=== PATIENT | male | born 1995 | race Asian ===

== ENCOUNTER 2025-04-17 08:46 | Outpatient (REF) | payer OTHER, SELFPAY ==
[2025-04-17 13:42] LABS: Appearance Urine Clear; Glucose Urine UA Negative (Negative); PH 7.0 (5.0-9.0); Specific Gravity - Urine 1.025 (1.005-1.025)
[2025-04-17 14:26] LABS: Alanine Aminotransferase 71 U/L (0-40); Albumin Level 4.6 g/dL (3.5-5.0); Alkaline Phosphatase 82 U/L (39-117); Anion Gap 9 (12-20); Aspartate Amino Transferase 37 U/L (5-37); Blood Urea Nitrogen 15 mg/dL (9-16); Calcium 9.0 mg/dL (8.4-10.2); Carbon Dioxide 26 mmol/L (22-29); Chloride 108 mmol/L (96-108); Cholesterol 187 mg/dL (<200); Estimated Glomerular Filt Rate > 60; HDL Cholesterol 54 mg/dL (>40); Magnesium 2.1 mg/dL (1.6-2.6); Potassium 4.2 mmol/L (3.3-5.1); Sodium 139 mmol/L (135-145); Total Protein 7.5 g/dL (6.5-8.0); Triglycerides 60 mg/dL (<150)
[2025-04-17 14:48] LABS: Hematocrit 46.4 % (42.0-52.0); Hemoglobin 15.3 g/dl (14.0-18.0); Imm Gran Abs Auto 0.02 X10*3/uL (0.00-0.03); Imm Gran Pct Auto 0.4 % (0.0-0.4); Lymphocytes Absolute Auto 2.2 X10*3/uL (1.2-4.9); MANUAL DIFF FLAG SCAN; Mean Corpuscular HGB Conc 33.0 g/dl (31.0-36.0); Mean Corpuscular Hemoglobin 27.0 pg (27.0-33.0); Mean Corpuscular Volume 82.0 fL (80.0-98.0); NRBC Abs Auto 0.000 X10*3/uL (0.0-0.012); NRBC Pct Auto 0.0 /100WBC (0.0-0.2); PLT CLUMP 1; Red Blood Count 5.66 X10*6/uL (4.60-5.80); SCAN SMEAR FLAG 1
[2025-04-17 14:54] LABS: Platelet Count 199 X10*3/uL (160-400); White Blood Count 5.3 X10*3/uL (4.8-10.8)
[2025-04-17 15:16] LABS: CT PCR Urine NOT DETECTED (Not Detect.); NG PCR Urine NOT DETECTED (Not Detect.)
[2025-04-17 18:27] LABS: Folate 6.1 ng/mL (> or = 4.0); Vitamin B12 380 pg/mL (200-900)
[2025-04-18 04:00] LABS: Syphilis Screen Nonreactive (Nonreactive)
[2025-04-18 04:12] LABS: HBS Num1 1.91 mIU/mL (0-7.99); HBsAGNum1 0.54 S/CO (0.00-0.99); HIV Num 1 0.08 S/CO (0.00-0.99); Hepatitis B Surface Antigen Negative (Negative); ~HepC Num1 0.24 S/CO (0.00-0.79); ~Hepatitis B Surface Antibody NONREACTIVE (Nonreactive); ~Hepatitis C Antibody Nonreactive (Nonreactive)
[2025-04-21 15:04] LABS: VITAMIN D (1,25 OH) D3 34 pg/mL; Vit D (1,25-Dihydroxy) Total 34 pg/mL (18-72); Vitamin D (1,25 OH) D2 <8 pg/mL
[2025-04-23 09:54] LABS: Testosterone, Free 77.8 pg/mL (35.0-155.0)
== END 2025-04-17 08:47 | disposition home or self-care (01) ==
LOC: HO.HKASLDS 08:46
PROVIDERS: PCP Student in an Organized Health Care Education/Training Program; Visit Provider Student in an Organized Health Care Education/Training Program
DX: Z13.9 Encounter for screening, unspecified (principal); Z23 Encounter for immunization; E66.812 Obesity, class 2; G47.9 Sleep disorder, unspecified; R06.83 Snoring; Z68.37 Body mass index [BMI] 37.0-37.9, adult
CPT/HCPCS: 80053; 80061; 81003; 82607; 82652; 82746; 83036; 83735; 84402; 84403; 84443; 85025; 86706; 86780; 86803; 87340; 87389; 87491; 87591; 90471; 90656; 96127

== ENCOUNTER 2025-04-17 08:46 | Outpatient (AMB) | payer OTHER, SELFPAY ==
--- NOTE | 2025-04-17 08:57 | A.OFFPC_ITS ---
Vital Signs 04/17/25 09:01 Height 5 ft 10.91 in Weight 269 lb 4 oz BMI 37.6 BP 122/82 Blood Pressure Location Rt brachial Position Sitting Pulse 86 Pulse Source Pulse Oximeter Temp 98.1 F Temp Source Oral Pulse Oximetry (%) 97 Oxygen Delivery Method Room Air Intake Visit Reasons: Meds review GIFT SHOP CLERK Accompanied by: Self / Same As Patient Allergies No Known Allergies Allergy (Verified 04/17/25 08:57) Tobacco use date assessed: 04/17/25 Dental Screening Dental Screen Date: 04/17/25 Did you have a dental visit in the last 12 months?: Yes Was dental information given to patient?: Patient has dentist HPI HPI Comments History of Present Illness Details History of Present Illness The patient is a 29 year old male presenting for his first medical appointment in over five years for a general health check-up and to discuss a suspected right inguinal hernia. Wellness Visit: The patient is establishing care after not having seen a doctor for over five years. He has recently started exercising again and improving his diet, resulting in a weight loss from 285 lbs to 269 lbs. Suspected Right Inguinal Hernia: The patient reports a lump or tube-like structure on his right side that comes and goes. He notes it is more prominent with physical activity, particularly when he was running over the summer, and has been less noticeable during the colder months when he was less active. Inadequate Sleep and Snoring: The patient reports not getting enough sleep, though he sleeps through the night well. He was previously averaging 3 to 4 hours of sleep per night and is now up to 6 hours, attributing the lack of sleep to overwork and stress. He endorses snoring and occasionally feels tired upon waking, but denies waking up gasping for air. He has never had a sleep study. Family History of Cancer: The patient has a significant family history of cancer. His father, who was a smoker, of lung cancer when the patient was 8 years old. His mother had thyroid cancer and from ovarian cancer. His 30- or 31-year-old brother, a non-smoker, also had lung cancer, underwent a partial lung resection, and has been in remission for five years. The patient states his brother underwent genetic marker testing, which revealed a shared genetic marker, but the patient is unaware of the specific marker and has not been tested himself. Surgical History: - Open reduction and internal fixation o f left arm fracture with two pins at age 16, pins subsequently removed Social History: - Employment: Works in corporate banking and manages other businesses. - Recent Life Events: Moved back to [facility] to care for his mother before s he . - Substance Use: Smokes marijuana sparin gly, about three times a year, and uses edibles occasionally from a dispensary. - Exercise: Has recently resumed exercis ing after a period of inactivity. - Nutrition: Reports his diet needs impr ovement. 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 Family History: - Father: History of lung cancer (smoker ), . - Mother: History of hypertension, thyro id cancer, and ovarian cancer, . - Brother: History of lung cancer (non-s moker), currently in remission. - Brother: Underwent genetic marker test ing due to parental cancer history and tested positive for an unspecified marker. Past Medical History - Fracture of left arm with growth plate involvement at age 16. - Denies personal history of high blood pressure, diabetes, or epilepsy. - No history of hospitalizations. Health Maintenance - Establishing care after not seeing a p hysician for over five years. - Weight management: Patient has initiat ed lifestyle changes including diet and exercise, with a recent weight loss from 285 pounds to 269 pounds. - Prostate cancer screening: Patient was advised that screening is not necessary at his age of 29, especially as he is asymptomatic. [facility] Medical History (Updated 04/17/25 @ 09:21 by Richard Padilla MD) Snoring Sleep disturbance Class 2 obesity Family History Mother Ovarian cancer Thyroid cancer HTN (hypertension) Diabetes Father Lung cancer HTN (hypertension) Brother Lung cancer Social History Housing: Apartment Patient Tobacco Use Status: Never used Tobacco e-Cigarette/Vaping Use: Never Used service: No Current occupational status: employed Cognitive needs: No Hearing needs: No Vision needs: No Questionnaire PHQ-9 Over the last 2 weeks, how often have you been bothered by any of the following problems? 1. Little interest or pleasure in doing things: several days 2. Feeling down, depressed, or hopeless: several days 3. Trouble falling or staying asleep, or sleeping too much: not at all 4. Feeling tired or having little energy: several days 5. Poor appetite or overeating: several days 6. Feeling bad about yourself - or that you are a failure or have let yourself or your family down: several days 7. Trouble concentrating on things, such as reading the newspaper or watching television: not at all 8. Moving or speaking so slowly that other people could have noticed. Or the opposite - being so fidgety or restless that you have been moving around a lot more than usual: not at all 9. Thoughts that you would be better off or of hurting yourself in some way: not at all Total score: 5 Depression Screening Interpretation: Negative Depression Screening Done: Yes Source: Developed by Drs. Ramiro Castro, Smita Orozco, Bao Pedroza and colleagues, with an educational erendira from [employer] Thrive Questionnaire Date Thrive assessed: 04/17/25 I am a: Patient What is your living situation today?: I have a steady place to live Within the past 12 months, did the food you bought not last and you didn't have the money to get more?: Never true Within the past 12 months, did you worry whether your food would run out before you got money to buy more?: Never true Do you have trouble paying for medicines?: No Do you have trouble getting transportation to medical appointments?: No Do you have trouble paying your heating and electricity bill?: No Do you have trouble taking care of your child, family member or friend?: No Do you have trouble with day-to-day activities such as bathing, preparing meals, shopping, managing finances, etc.?: No Are you currently unemployed and looking for a job?: No Are you interested in more education?: No Please select the resources that you would like help with: None Currently or been in a relationship where the following occur: No concerns reported THRIVE Score: 0 AUDIT C Alcohol Use Questionnaire (AUDIT-C) 1. How often do you have a drink containing alcohol?: Never Total Score: 0 SHERYL-7 AMB Questionnaire SHERYL-7 Date SHERYL - 7 assessed: 04/17/25 Feeling nervous, anxious, or on edge: 1 = Several days Not being able to stop or control worryin = Not at all Worrying too much about different things: 1 = Several days Trouble relaxin = More than half the days Being so restless that it is hard to sit still: 0 = Not at all Becoming easily annoyed or irritable: 1 = Several days Feeling afraid as if something awful might happen: 0 = Not at all Total SHERYL-7 score (0-4 normal; 5-9 mild; 10-14 moderate; 15-21 severe): 5 Source: Developed by Drs. Ramiro Castro, Smita Orozco, Bao Pedroza and colleagues, with an educational erendira from [employer] Review of Systems Narrative Review of Systems - General: Reports occasional fatigue on waking. - Abdominal: Reports a lump on the right side that comes and goes, more noticeable with physical activity. - Genitourinary: Reports normal urination. - Gastrointestinal: Reports bowel movements a few times per day, which is his normal. - Respiratory: Denies waking up gasping for air. - Neurological: Reports sleep is not amazing but sleeps through the night; endorses snoring. 10-point ROS reviewed and negative except as noted in HPI Physical exam (Primary Care) Vital Signs: Last Vital Signs Temp 98.1 F 04/17/25 09:01 Pulse 86 04/17/25 09:01 BP 122/82 04/17/25 09:01 Pulse Ox 97 04/17/25 09:01 Oxygen Delivery Method Room Air 04/17/25 09:01 BMI result Body Mass Index 37.6 Tobacco/Smoking Status: Tobacco use Status Tobacco use date assessed 04/17/25 04/17/25 08:58 Patient Tobacco Use Status Never used Tobacco 04/17/25 08:58 e-Cigarette/Vaping Use Never Used 04/17/25 08:58 PHQ-9: PHQ-9 Score PHQ-9: Total score 5 04/17/25 09:02 Depression Screening Interpretation: Negative Thrive Assessment: Date of Thrive Assessment Date Thrive assessed 04/17/25 12 08:58 Currently or been in a relationship where the following occur: No concerns reported Narrative Physical Exam General: Well-appearing, in no acute distress. Vital signs: Within normal limits. HEENT: Normocephalic, atraumatic. PERRLA, EOMI. Conjunctiva clear, sclera anicteric. Oropharynx clear, mucous membranes moist. TMs intact bilaterally. Neck: Supple, no lymphadenopathy, no thyromegaly, no JVD or carotid bruits. Cardiovascular: RRR, normal S1/S2, no murmurs, rubs, or gallops. Peripheral pulses 2+ and symmetric. No edema. Respiratory: Lungs clear to auscultation bilaterally, no wheezes, rales, or rhonchi. Normal effort. Abdomen: Soft, non-tender, non-distended. Normoactive bowel sounds. No hepatosplenomegaly, no masses. did not palpate mass MSK: Full range of motion, no joint swelling or deformity. Normal gait. Skin: Warm, dry, intact. No rashes, lesions, or pallor. Neuro: Alert and oriented x3. Cranial nerves II-XII intact. Strength 5/5 throughout. Sensation intact. Reflexes 2+ symmetric. Normal coordination and gait. Psych: Appropriate mood and affect. Normal judgment and insight. Office Procedures Flu Questionnaire Does the patient have a severe egg allergy?: No Does the patient have severe life threatening allergies?: No Does the patient have a fever or illness today?: No Has the patient ever had Guillain-Buffalo Syndrome?: No Has the patient ever had any past reaction to a flu shot?: No Immunizations Fluarix [id number] (PF) 45 mcg (15 mcg x 3)/0.5 mL IM syringe Performing Provider: Richard Padilla MD Performing Location: [facility] Administered by: Tonie Chamorro CMA on 04/17/25 09:13 Dose Route Admin Location Dispensed Lot Number Expiration Date NDC Paperboard Machine Operator 0.5 mL IM Left Deltoid 0.5 mL [id number] 11/07/25 [id number] Number 1 Products and Services VIS Given Date VIS Provided VIS Publication Date 04/17/25 Single Vaccine 24 Eligibility Eligibility Date Funding Source Not [facility] Eligible 04/17/25 Private Coding Level of Care Code New Pt Level 4 (67517) Diagnoses Class 2 obesity E66.812 Sleep disturbance G47.9 Snoring R06.83 Assessment & Plan Assessment & Plan (1) Class 2 obesity: Code(s): E66.812 - Obesity, class 2 Category: Medical (2) Sleep disturbance: Code(s): G47.9 - Sleep disorder, unspecified Category: Medical (3) Snoring: Code(s): R06.83 - Snoring Category: Medical Plan Consent Patient was informed and verbally consented to the use of an ambient scribe for clinic note documentation during this visit. Plan 1. Wellness Visit And Health Maintenance - Comprehensive baseline labs will be ordered including a complete blood count (CBC), comprehensive metabolic panel (CMP), hemoglobin A1c, hepatitis B and C panels, HIV test, lipid panel, magnesium, syphilis test, thyroid panel, urinalysis, vitamin B12, folate, vitamin D, and testosterone. - Patient will follow up in two weeks to review lab results and discuss further management, including weight loss strategies. 2. Inadequate Sleep And Snoring - Will order an at-home sleep study to evaluate for sleep apnea, which could be related to his blood pressure and weight. - The patient was informed that the results of the sleep study will guide further treatment decisions. 3. Prostate Screening Counseling - The patient was counseled that prostate screening is not indicated at his age of 29, as he is too young and asymptomatic. Discussion Notes I introduced myself to the patient, a 29-year-old male presenting for his first doctor's appointment in over five years. We discussed his concerns, including a suspected right inguinal hernia, recent weight loss efforts, and a question about prostate screening. I explained that as this is our first visit, the initial step is to gather baseline information with a comprehensive set of lab tests. I listed the labs ordered, which include a CBC, CMP, HbA1c, hepatitis panel, HIV, lipid panel, and various vitamin and hormone levels. I advised him that prostate screening is not necessary at his age, particularly since he is asymptomatic. Due to his history of snoring, inadequate sleep, and occasional tiredness, I recommended an at-home sleep study to rule out sleep apnea, explaining that untreated sleep issues can hinder weight loss. We discussed his significant family history of cancer, and I reassured him that based on the current evaluation, there are no immediate red flags. I instructed him to schedule a fo llow-up appointment in two weeks to review all results and formulate a comprehensive plan for weight management and any other identified issues. Patient Instructions - Please proceed to the lab in our office to have your blood drawn for the ordered tests. - Schedule a follow-up appointment in about two weeks to discuss your lab results and next steps. - You will be contacted to set up an at-home sleep study. Please order picker the kit, use it as instructed, and return it so we can get the results. - You can set up a patient portal account to view your lab results once they are available. - Prostate cancer screening is not needed at this time. Medical Decision Making The patient is a 29-year-old male establishing care after a five-year lapse. His primary goals are a general health evaluation, weight management, and assessment of a suspected right inguinal hernia. Given this is an initial visit, my priority is to obtain comprehensive baseline data. I ordered a full panel of labs including CBC, CMP, lipids, HbA1c, TSH, STI screening, and vitamin levels to get a complete picture of his metabolic and overall health status. The patient's concern about prostate screening was addressed; given his age of 29 and lack of urinary symptoms or a first-degree relative with early-onset prostate cancer, I explained that screening is not indicated and could lead to unnecessary procedures. The patient's report of poor sleep, snoring, and occasional fatigue, coupled with his weight, raises suspicion for obstructive sleep apnea. Untreated CANDIS can impede weight loss and affect cardiovascular health, so an at-home sleep study is a crucial next diagnostic step. The plan is to follow up in two weeks to review all diagnostic results. At that time, we will discuss the findings in detail, address his weight loss goals, and determine the need for any specialist referrals or further interventions based on the lab and sleep study outcomes. Total Time Statement 30 min Total time spent caring for the patient today includes pre-visit chart review, documentation, review of laboratory and diagnostic imaging results, medication reconciliation, medically necessary evaluation, counseling on diagnoses, care coordination, ordering appropriate tests and medications, review of tests performed by other providers, reporting test results to the patient, and communication with other healthcare providers. Orders: Orders Complete Blood Count Auto Diff Today Z13.9 - Encounter for screening, unspecified Syphilis Screen Today Z13.9 - Encounter for screening, unspecified Comprehensive Met. Panel Today Z13.9 - Encounter for screening, unspecified Hepatitis C Antibody Today Z13.9 - Encounter for screening, unspecified TSH reflex Free T4 Today Z13.9 - Encounter for screening, unspecified CT NG by PCR Urine Today Z13.9 - Encounter for screening, unspecified HIV Ab/Ag Today Z13.9 - Encounter for screening, unspecified UA CC w/rflx Micro + Cult Today Z13.9 - Encounter for screening, unspecified Vitamin B12 and Folate Today Z13.9 - Encounter for screening, unspecified Magnesium Today Z13.9 - Encounter for screening, unspecified Vitamin D 1,25 dihydroxy Today Z13.9 - Encounter for screening, unspecified Hepatitis B Surface Antibody Today Z13.9 - Encounter for screening, unspecified RT home sleep study Today G47.9 - Sleep disorder, unspecified, R06.83 - Snoring Influenza [id number] Immunization Today Z23 - Encounter for immunization Hepatitis B Surface Antigen Today Z13.9 - Encounter for screening, unspecified Lipid Panel Today Z13.9 - Encounter for screening, unspecified Hemoglobin A1c Today Z13.9 - Encounter for screening, unspecified Testosterone, Free/Total Today Z13.9 - Encounter for screening, unspecified
[2025-04-17 09:01] VITALS: BP 122/82; PULSE 86; TEMP 36.7; O2SAT 97; BMI 37.6
--- OUTSIDE RECORDS SUMMARY | 2025-04-17 11:20 | XMS_ITS | Encounter Summary ---
Author Organization [facility] Address [address] [place] [id number] Phone Care Team Providers Care Remelt Pan Tank Operator Name Role Phone Rani Warner Primary Care Provider [phone] Encounter Details Date Type Department Care Team (Late st Contact Info) Description 12/18/2010 Conversion Encounter [facility] - [address] [address] Social History Tobacco Use Types Packs/Day Years Used Date Smoking Tobacco: Never Assessed Sex and Gender Information Value Date Recorded Sex Assigned at Not on file Legal Sex Male 6:15 PM EDT Gender Identity Not on file Sexual Orientation Not on file documented as of this encounter Plan of Treatment Not on file documented as of this encounter Visit Diagnoses Not on filedocumented in this encounter Care Teams Remelt Pan Tank Operator Relationship Specialty Start Date End Date Rani Warner [address] [place] [id number] PCP - General 09/16/17 documented as of this encounter
--- OUTSIDE RECORDS SUMMARY | 2025-04-17 11:20 | XMS_ITS | Clinical Summary ---
Author Organization [facility] Address [address] [place] [address] Phone Care Team Providers Care Seamer Operator Name Role Phone Rani Warner Primary Care Provider [phone] Immunizations Immunization Administration Dates Next Due DTaP 5 06/15/2001, 9,1996, 997,1996 H1N1 06/07/2009 Hep A, ped/adol 07/28/2012,07/23/2010 Hep B, ped/adol 03/22/1997,1996,1996 Hib (PRP-T) 07/24/1998, 7,1996, 997 MMR 06/15/2001,07/24/1998 Meningococcal Conj (Menactra) MCV4P 09/29/2013,1 06/25/2007 OPV 06/15/2001, 9,1996, 997 PPD Test 01/02/2009 Tdap 01/04/2007 Social History Tobacco Use Types Packs/Day Years Used Date Smoking Tobacco: Never Comments:Never Smoker Sex and Gender Information Value Date Recorded Sex Assigned at Not on file Legal Sex Male 6:15 PM EDT Gender Identity Not on file Sexual Orientation Not on file Last Filed Vital Signs Vital Sign Reading Time Taken Comments Blood Pressure - - Pulse 98 09/29/2013 3:03 PM EDT Temperature 36.8 C (98.3 F) 06/18/2011 3:54 PM EST Respiratory Rate - - Oxygen Saturation 97% 09/29/2013 3:03 PM EDT Inhaled Oxygen Concentration - - Weight 93.6 kg (206 lb 5.6 oz) 09/29/2013 2:57 P M EDT Height 176.5 cm (5' 9.5 ) 09/29/2013 2:57 PM EDT Body Mass Index 30.04 09/29/2013 2:57 PM EDT Plan of Treatment Health Maintenance Due Date Last Done Comments Varicella Vaccines (1 of 2 - 13+ 2-dose series) 2009 DTaP,Tdap,and Td Vaccines (7 - Td or Tdap) 01/04/2017 01/04/2007, 06/15/2001, 07/24/1998, Additional history exists HPV Vaccines (1 - 3-dose SCDM series) 2023 Influenza Vaccines (#1) 2024 COVID-19 Vaccine ( season) 2025 Hepatitis B Vaccines Completed 03/22/1997, 1996, 1996 HIB Vaccines Completed 07/24/1998, 12/09, 1996, Additional history exists IPV Vaccines Completed 06/15/2001, 07/09, 1996, Additional history exists MMR Vaccines Completed 06/15/2001, 07/24/1998 Hepatitis A Vaccines Completed 07/28/2012, 07/24/19 11 Meningococcal Vaccine Completed 09/29/2013, 008 Men B Vaccine Aged Out No longer elig ible based on patient's age to complete this topic Pneumococcal Vaccine Aged Out No long er eligible based on patient's age to complete this topic Care Teams Seamer Operator Relationship Specialty Start Date End Date Rani Warner [address] [place] [address] PCP - General 09/16/17
== END 2025-04-17 09:25 | disposition home or self-care (01) ==
LOC: HO.HMCFMS 08:47
PROVIDERS: Visit Provider Student in an Organized Health Care Education/Training Program
DX: E66.812 Obesity, class 2 (principal); G47.9 Sleep disorder, unspecified; R06.83 Snoring; Z23 Encounter for immunization

== ENCOUNTER 2025-05-01 16:28 | Outpatient (AMB) | payer OTHER, SELFPAY ==
[2025-05-01 16:29] VITALS: BP 124/90; PULSE 98; TEMP 36.8; O2SAT 97
--- NOTE | 2025-05-01 16:29 | A.OFFPC_ITS ---
Vital Signs 05/01/25 16:29 Height 5 ft 10.91 in BP 124/90 H Blood Pressure Location Rt brachial Position Sitting Pulse 98 Pulse Source Pulse Oximeter Temp 98.2 F Temp Source Oral Pulse Oximetry (%) 97 Oxygen Delivery Method Room Air Intake Visit Reasons: 2 wk - lab review Accompanied by: Self / Same As Patient Allergies No Known Allergies Allergy (Verified 05/01/25 16:29) Tobacco use date assessed: 05/01/25 Dental Screening Dental Screen Date: 05/01/25 Did you have a dental visit in the last 12 months?: Yes HPI HPI Comments History of Present Illness Details Consent Verbal consent was obtained from the patient to discuss his weight after being asked for permission. Patient was informed and verbally consented to the use of an ambient scribe for clinic note documentation during this visit. History of Present Illness The patient is a 29 year old male presenting for review of his laboratory results. Prediabetes: The patient's recent lab results showed a hemoglobin A1c of 6.4% and a random glucose of 127 mg/dL, indicating prediabetes. He was not surprised by the result, attributing it to a recent poor lifestyle. He has a significant family history of diabetes. Obesity and Metabolic Syndrome: The patient has a BMI of 37.6, which falls into obesity class II. He acknowledges that his weight is a major health concern he has not managed well. His heaviest weight this year was 285-287 pounds. He started running this year and completed a seven-mile race, but stopped when the weather got colder. He notes that in the past, he was in much better physical shape at around 211 pounds with 14% body fat. The combination of his weight, prediabetes, and elevated lipids fits a pattern of metabolic syndrome. Hyperlipidemia and Elevated Liver Enzymes: Lab results showed an elevated LDL cholesterol of 121 mg/dL and an elevated ALT of 71 U/L. The patient reports that the labs were likely drawn in a fasting state as he usually skips breakfast. His triglycerides and HDL were noted to be good. Sleep Disturbance: The patient has been actively working on improving his sleep duration. He reports increasing his average sleep from 4.5-5 hours per night last year to 6.5-7 hours per night this year. He has a sleep study scheduled for June 12. Surgical History: - No prior surgical history was discusse d. Medications: - The patient was not taking any medicat ions at the time of the visit. Social History: - Exercise: The patient started running this year and completed a 7-mile race. - He has not run regularly since it got cold. - He reports his weight fluctuated betwe en 260 and 275 pounds when he was exercising heavily. - Nutrition: The patient acknowledges a recent poor lifestyle regarding his diet . - He typically skips breakfast, which ma y result in an intermittent fasting pattern. - Sleep: The patient has improved his sl eep from an average of 4.5-5 hours to 6.5-7 hours per night over the past year. Family History: - Positive for a history of diabetes in most of his family members. Diagnostic Results: - Complete Blood Count: White blood cell s, red blood cells, hemoglobin, hematocrit, and platelets were noted to be good. - Comprehensive Metabolic Panel: Sodium, potassium, chloride, and kidney function are good. - Random glucose was 127 mg/dL. - ALT was elevated at 71 U/L. - Calcium and magnesium levels are good. - Hemoglobin A1c: 6.4%. - Lipid Panel: LDL cholesterol is 121 mg /dL. - Triglycerides and HDL were noted to be good. - Other Labs: Vitamin B12 (380), folate, TSH, and total testosterone levels are good. - Infectious Disease Screening: Negative for Hepatitis B, Hepatitis C, and HIV. - Urinalysis: Normal. - Anthropometrics: BMI is 37.6. Review of Systems - General: Reports feeling unwell during exercise after poor dietary choices. - Musculoskeletal: Reports feeling strai n on his knees, ankles, and back when running due to his weight. - All other systems were reviewed and ar e negative as per the conversation. 10-point ROS reviewed and negative excep t as noted in HPI Past Medical History - No significant past medical history wa s discussed. Health Maintenance - Discussed BMI categories and the patie nt's classification as obesity class II with a BMI of 37.6. - Counseled on the role of BMI as an ind icator for future cardiovascular risk. - Recommended lifestyle modifications, i ncluding 30 minutes of moderate- intensity exercise daily. - Scheduled sleep study for June 12 to investigate for sleep apnea. - Reviewed comprehensive lab results, wh ich were negative for infectious diseases. [facility] Medical History Snoring Sleep disturbance Class 2 obesity Family History Mother Ovarian cancer Thyroid cancer HTN (hypertension) Diabetes Father Lung cancer HTN (hypertension) Brother Lung cancer Social History Housing: Apartment Patient Tobacco Use Status: Never used Tobacco e-Cigarette/Vaping Use: Never Used service: No Current occupational status: employed Cognitive needs: No Hearing needs: No Vision needs: No Questionnaire PHQ-9 Over the last 2 weeks, how often have you been bothered by any of the following problems? 1. Little interest or pleasure in doing things: several days 2. Feeling down, depressed, or hopeless: several days 3. Trouble falling or staying asleep, or sleeping too much: not at all 4. Feeling tired or having little energy: several days 5. Poor appetite or overeating: several days 6. Feeling bad about yourself - or that you are a failure or have let yourself or your family down: several days 7. Trouble concentrating on things, such as reading the newspaper or watching television: not at all 8. Moving or speaking so slowly that other people could have noticed. Or the opposite - being so fidgety or restless that you have been moving around a lot more than usual: not at all 9. Thoughts that you would be better off or of hurting yourself in some way: not at all Total score: 5 Depression Screening Interpretation: Negative Depression Screening Done: Yes Source: Developed by Drs. Ramiro Castro, Smita Orozco, Bao Pedroza and colleagues, with an educational erendira from [employer]. Thrive Questionnaire Date Thrive assessed: 04/14/25 I am a: Patient What is your living situation today?: I have a steady place to live Within the past 12 months, did the food you bought not last and you didn't have the money to get more?: Never true Within the past 12 months, did you worry whether your food would run out before you got money to buy more?: Never true Do you have trouble paying for medicines?: No Do you have trouble getting transportation to medical appointments?: No Do you have trouble paying your heating and electricity bill?: No Do you have trouble taking care of your child, family member or friend?: No Do you have trouble with day-to-day activities such as bathing, preparing meals, shopping, managing finances, etc.?: No Are you currently unemployed and looking for a job?: No Are you interested in more education?: No Currently or been in a relationship where the following occur: No concerns reported THRIVE Score: 0 SHERYL-7 AMB Questionnaire SHERYL-7 Date SHERYL - 7 assessed: 04/17/25 Source: Developed by Drs. Ramiro Castro, Smita Orozco, Bao Pedroza and colleagues, with an educational erendira from [employer]. Physical exam (Primary Care) Vital Signs: Last Vital Signs Temp 98.2 F 05/01/25 16:29 Pulse 98 05/01/25 16:29 BP 124/90 H 05/01/25 16:29 Pulse Ox 97 05/01/25 16:29 Oxygen Delivery Method Room Air 05/01/25 16:29 Tobacco/Smoking Status: Tobacco use Status Tobacco use date assessed 05/01/25 05/01/25 16:35 Patient Tobacco Use Status Never used Tobacco 05/01/25 16:35 e-Cigarette/Vaping Use Never Used 05/01/25 16:35 PHQ-9: PHQ-9 Score PHQ-9: Total score 5 05/02/25 08:16 Depression Screening Interpretation: Negative Thrive Assessment: Date of Thrive Assessment Date Thrive assessed 04/14/25 05/01/25 16:35 Currently or been in a relationship where the following occur: No concerns reported Narrative Physical Exam General: Well-appearing, in no acute distress. Vital signs: Within normal limits. HEENT: Normocephalic, atraumatic. PERRLA, EOMI. Conjunctiva clear, sclera anicteric. Oropharynx clear, mucous membranes moist. TMs intact bilaterally. Neck: Supple, no lymphadenopathy, no thyromegaly, no JVD or carotid bruits. Cardiovascular: RRR, normal S1/S2, no murmurs, rubs, or gallops. Peripheral pulses 2+ and symmetric. No edema. Respiratory: Lungs clear to auscultation bilaterally, no wheezes, rales, or rhonchi. Normal effort. Abdomen: Soft, non-tender, non-distended. Normoactive bowel sounds. No hepatosplenomegaly, no masses. MSK: Full range of motion, no joint swelling or deformity. Normal gait. Skin: Warm, dry, intact. No rashes, lesions, or pallor. Neuro: Alert and oriented x3. Cranial nerves II-XII intact. Strength 5/5 throughout. Sensation intact. Reflexes 2+ symmetric. Normal coordination and gait. Psych: Appropriate mood and affect. Normal judgment and insight. Office Procedures Flu Questionnaire Does the patient have a severe egg allergy?: No Does the patient have severe life threatening allergies?: No Does the patient have a fever or illness today?: No Has the patient ever had Guillain-Hereford Syndrome?: No Has the patient ever had any past reaction to a flu shot?: No Immunizations Fluarix [id number] (PF) 45 mcg (15 mcg x 3)/0.5 mL IM syringe Performing Provider: Richard Padilla MD Performing Location: [facility] Documented (not given) by: Tonie Chaomrro CMA on 05/01/25 16:42 Reason Not Given: Received Previously Coding Level of Care Code Est Pt Level 3 (44794) Add On Problem Visit Only Diagnoses Elevated liver enzymes R74.8 Prediabetes R73.03 Class 2 obesity E66.812 Sleep disturbance G47.9 Snoring R06.83 Assessment & Plan Assessment & Plan (1) Elevated liver enzymes: Code(s): R74.8 - Abnormal levels of other serum enzymes Category: Medical (2) Prediabetes: Code(s): R73.03 - Prediabetes Category: Medical (3) Class 2 obesity: Code(s): E66.812 - Obesity, class 2 Category: Medical (4) Sleep disturbance: Code(s): G47.9 - Sleep disorder, unspecified Category: Medical (5) Snoring: Code(s): R06.83 - Snoring Category: Medical Plan Plan 1. Prediabetes - Initiate metformin 500 mg twice a day to lower hemoglobin A1c. - Counselled the patient on potential gastrointestinal side effects such as diarrhea and queasiness, which may occur in the first two weeks and typically subside. - Plan to switch to extended-release metformin if side effects persist. - Place referral for a registered nurse to provide education on a prediabetes diet. - Repeat labs in three to six months to monitor response to therapy. 2. Obesity - Counseled on the benefits of metformin for potential weight loss of 3-5%. - Advised 30 minutes of moderate-intensity exercise daily, defined as being able to walk and hold a conversation simultaneously. - Discussed how untreated sleep apnea can hinder weight loss and contribute to metabolic issues; patient to proceed with scheduled sleep study. - Will refer to a scalping machine operator for dietary management. 3. Elevated Liver Enzymes And Hyperlipidemia - Order an ultrasound of the liver to obtain a baseline and evaluate for fatty liver disease, given the elevated ALT of 71. - The patient was educated that fatty liver is now a leading cause for liver transplants. - Management of hyperlipidemia will be addressed through the recommended diet and exercise plan, as well as the nutrition consult. Discussion Notes I reviewed the patient's recent lab results with him, which showed a hemoglobin A1c of 6.4%, an elevated ALT of 71, and an elevated LDL of 121, consistent with prediabetes and a metabolic syndrome pattern. I discussed his BMI of 37.6, placing him in obesity class II, and its role as a cardiovascular risk factor. I recommended starting metformin 500 mg twice daily for his prediabetes, also noting its potential benefit for weight loss. I counseled him on the common gastrointestinal side effects of metformin and the option to switch to an extended-release formula if they are not tolerated. Given the elevated ALT, I recommended a liver ultrasound to establish a baseline and assess for fatty liver disease, explaining it is a common consequence of metabolic disease. I am placing a referral for a registered nurse to assist with dietary changes. We discussed an achievable exercise goal of 30 minutes of moderate-intensity activity daily. We also reviewed the importance of his upcoming sleep study, as untreated sleep apnea can contribute to his metabolic issues. The plan is to repeat labs in 3-6 months to assess his progress. The patient voiced understanding and agreement with the plan, and was encouraged to use the patient portal for any questions. Patient Instructions - Start taking Metformin 500 mg, one tablet by mouth twice a day. - This medication may cause stomach upset or diarrhea for the first two weeks. - If these symptoms continue, please message me through the patient portal, as we can switch you to a different form of the medication. - We are ordering an ultrasound of your liver. - A registered nurse will contact you to provide counseling on your diet. - Try to get at least 30 minutes of moderate-intensity exercise each day. - An example is a brisk walk where you can still hold a conversation. - Please proceed with your scheduled sleep study on June 12. - We will need to repeat your lab work in 3 to 6 months. - If you have any questions, please contact me through the patient portal. Medical Decision Making The patient is a 29-year-old male presenting for a review of his lab results. The findings of a hemoglobin A1c of 6.4%, class II obesity (BMI 37.6), an elevated ALT of 71, and hyperlipidemia (LDL 121) are consistent with a diagnosis of metabolic syndrome. The patient has a strong family history of diabetes, increasing his risk of progression from prediabetes to type 2 diabetes. Due to the constellation of findings and his risk factors, I have initiated metformin 500 mg BID. This therapy is aimed at improving glycemic control and may also assist with weight management. The elevated ALT is concerning for non- alcoholic fatty liver disease (NAFLD), a likely comorbidity. A liver ultrasound is warranted for baseline evaluation to assess for steatosis and prevent potential progression to fibrosis or cirrhosis. Management is focused on aggressive lifestyle modification. A referral to a registered nurse is critical for structured nutritional counseling. The patient's upcoming sleep study is a campbell diagnostic step, as untreated obstructive sleep apnea could be a significant contributor to his metabolic derangements. I will reassess his clinical status and response to interventions with repeat labs in 3-6 months. Total Time Statement 20 min Total time spent caring for the patient today includes pre-visit chart review, documentation, review of laboratory and diagnostic imaging results, medication reconciliation, medically necessary evaluation, counseling on diagnoses, care coordination, ordering appropriate tests and medications, review of tests performed by other providers, reporting test results to the patient, and communication with other healthcare providers. Orders: Orders Influenza [id number] Immunization 05/01/25 Z23 - Encounter for immunization US abdomen limited 05/01/25 R74.8 - Abnormal levels of other serum enzymes Referrals Nutrition/Dietitian Referral E66.812 - Obesity, class 2 Medications: New metformin 500 mg PO BID 180 tabs 0RF
--- OUTSIDE RECORDS SUMMARY | 2025-05-01 18:52 | XMS_ITS | Encounter Summary ---
Author Organization [facility] Address [address] [place] [id number] Phone Care Team Providers Care Actuarial Assistant Name Role Phone Rani Warner Primary Care Provider [phone] Encounter Details Date Type Department Care Team (Late st Contact Info) Description 12/18/2010 Conversion Encounter [facility] - [address] [id number] Social History Tobacco Use Types Packs/Day Years [...] on filedocumented in this encounter Care Teams Actuarial Assistant Relationship Specialty Start Date End Date Rani Warner [address] [place] [id number] PCP - General 09/16/17 documented as of this encounter
--- OUTSIDE RECORDS SUMMARY | 2025-05-01 18:52 | XMS_ITS | Clinical Summary ---
Author Organization [facility] Address [address] [place] [address] Phone Care Team Providers Care Ice Crusher Name Role Phone Rani Warner Primary Care Provider [phone] Immunizations Immunization Administration Dates Next Due DTaP [...] age to complete this topic Care Teams Ice Crusher Relationship Specialty Start Date End Date Rani Warner [address] [place] [address] PCP - General 09/16/17
== END 2025-05-01 16:55 | disposition home or self-care (01) ==
LOC: HO.HMCFMS 16:29
PROVIDERS: PCP Student in an Organized Health Care Education/Training Program; Visit Provider Student in an Organized Health Care Education/Training Program
DX: Z23 Encounter for immunization (principal)

== ENCOUNTER → 2025-05-01 16:28 | Outpatient (BNVA) | payer OTHER, SELFPAY | PROVIDERS: PCP Student in an Organized Health Care Education/Training Program; Visit Provider Student in an Organized Health Care Education/Training Program | DX: Z13.31 Encounter for screening for depression (principal) | CPT/HCPCS: 90471; 96127 ==